=== PATIENT | female | born 1970 | race Hispanic/Latino ===

== ENCOUNTER 2022-03-23 12:00 | Inpatient (IN) | payer OTHER ==
[2022-03-23 12:56] VITALS: BMI 36.6
[2022-03-26 08:13] LABS: SARS-CoV-2 NAA Rapid Test Not Detected (NotDetected)
[2022-03-26] MEDS ORDERED: Midazolam HCl 2 mg/2 ml Vial ONE (08:47)
[2022-03-26] MEDS ORDERED: Fentanyl 250 MCG/5 ML VIAL ONE (08:47)
[2022-03-26] MEDS ORDERED: CEFAZOLIN 2 GM VIAL ONE (09:02)
[2022-03-26] MEDS ORDERED: Sodium Chloride 0.9% 100 ML ONE ×3 (09:02→17:21)
[2022-03-26] MEDS ORDERED: cefOXitin 2 GM VIAL ONE ×2 (09:03→17:20)
[2022-03-26] MEDS ORDERED: Lidocaine 1% PF 5 ML VIAL ONE (09:16)
[2022-03-26] MEDS ORDERED: Glycopyrrolate 0.2 MG/ML 5 ML SYRINGE ONE (09:16)
[2022-03-26] MEDS ORDERED: Ondansetron PF 4 MG/2 ML Vial ONE (09:16)
[2022-03-26] MEDS ORDERED: PROPOFOL 200 MG/20 ML VIAL ONE (09:16)
[2022-03-26] MEDS ORDERED: Dexamethasone 20 MG/5 ML VIAL ONE (09:16)
[2022-03-26] MEDS ORDERED: NEOSTIGMINE 3 MG/3 ML SYR 3 MG/3 ML SYRINGE ONE (09:16)
[2022-03-26] MEDS ORDERED: Rocuronium Bromide 10 MG/ML (10ML VIAL) ONE (09:16)
[2022-03-26] MEDS ORDERED: Bupivacaine/Epinephrine 0.25% 30 ML VIAL ONE (09:44)
[2022-03-26] MEDS ORDERED: hydrALAZINE 20 MG/ML VIAL SLOW IVP PRN (11:55)
[2022-03-26] MEDS ORDERED: Ondansetron PF 4 MG/2 ML Vial IVP PRN ×2 (11:55→12:45)
[2022-03-26] MEDS ORDERED: Promethazine HCl 25 MG/ML VIAL IM PRN ×3 (11:55→12:45)
[2022-03-26] MEDS ORDERED: Ipratropium/Albuterol 3 ML NEB NEB PRN (11:55)
[2022-03-26] MEDS ORDERED: Ketorolac Tromethamine 30 MG/ML VIAL IVP SCH (12:00)
[2022-03-26] MEDS ORDERED: Ketorolac Tromethamine 30 MG/ML VIAL IVP PRN (12:20)
[2022-03-26] MEDS ORDERED: Ondansetron HCl/PF 4 MG/2 ML Vial IVP PRN (12:20)
[2022-03-26] MEDS ORDERED: HYDROmorphone 2 MG/ML VIAL SLOW IVP PRN (12:20)
[2022-03-26] MEDS ORDERED: Ketorolac Tromethamine 30 MG/ML VIAL ONE (12:23)
[2022-03-26] MEDS ORDERED: Fentanyl 100 MCG/2 ML VIAL ONE (12:28)
[2022-03-26] MEDS ORDERED: Morphine Sulfate 100 MG in Dextrose 5% in Water 98 ML IV SCH (12:45)
[2022-03-26] MEDS ORDERED: diphenhydrAMINE 25 MG CAP PO PRN (12:45)
[2022-03-26] MEDS ORDERED: diphenhydrAMINE 50 MG/ML VIAL IM/IV PRN (12:45)
[2022-03-26] MEDS ORDERED: Naloxone HCl 0.4 mg/ml Vial IV PRN (12:45)
[2022-03-26] MEDS ORDERED: HYDROmorphone 0.5 MG/0.5 ML SYRINGE ONE ×2 (12:51→13:13)
[2022-03-26] MEDS: Sodium Chloride 0.9% 1,000 ML IV SCH ×2 (13:15→22:10)
[2022-03-26] MEDS: cefOXitin 2 GM in Sodium Chloride 0.9% 100 ML IVPB SCH (17:28)
[2022-03-26] MEDS: Famotidine 20 MG TAB PO SCH (21:00)
[2022-03-26] MEDS: Famotidine/PF 20 mg/2ml Vial SLOW IVP SCH (21:01)
[2022-03-27] MEDS: cefOXitin 2 GM in Sodium Chloride 0.9% 100 ML IVPB SCH (01:14)
[2022-03-27] MEDS: Sodium Chloride 0.9% 1,000 ML IV SCH ×3 (05:03→23:39)
[2022-03-27 06:16] LABS: Hemoglobin 12.9 g/dL (12.0-16.0); Mean Corpuscular HGB CONC 32.8 g/dL (32.0-36.0); Mean Corpuscular Hemoglobin 29.4 pg (27.0-31.0); Mean Corpuscular Volume 89.5 fl (78.0-98.0); Mean Platelet Volume 6.2 fL (7.4-10.4); Platelet Count 460 10x3/uL (130-400); RBC Distribution Width 13.1 % (11.5-14.5); Red Blood Cell (RBC) Count 4.38 mill/uL (4.20-5.40); White Blood Cell (WBC) Count 23.5 10x3/uL (4.8-10.8)
[2022-03-27 06:28] LABS: Anion Gap 11 mmol/L (10-20); BUN (Urea Nitrogen) 12 mg/dL (9.8-20.1); Calc. Creatinine Clearance 128 mL/min (70-130); Calcium 8.5 mg/dL (7.8-10.44); Carbon Dioxide 23 mmol/L (22-29); Chloride 105 mmol/L (98-107); Estimated GFR 101; Glucose 132 mg/dL (70-105); Potassium 4.3 mmol/L (3.5-5.1); Sodium 135 mmol/L (136-145)
[2022-03-27 06:57] LABS: Lymphocytes 23 % (21-51); MDiff Complete? YES; Monocytes 6 % (0-10); Neutrophil 71 % (42-75); Platelet Morphology Comment Appears Increased; RBC Morphology Normal
[2022-03-27] MEDS: Famotidine/PF 20 mg/2ml Vial SLOW IVP SCH ×2 (09:39→20:32)
[2022-03-27] MEDS: Famotidine 20 MG TAB PO SCH ×2 (09:39→20:32)
[2022-03-28] MEDS: Sodium Chloride 0.9% 1,000 ML IV SCH ×3 (05:09→22:02)
[2022-03-28] MEDS: Famotidine/PF 20 mg/2ml Vial SLOW IVP SCH ×2 (08:05→22:02)
[2022-03-28] MEDS: Famotidine 20 MG TAB PO SCH ×2 (08:06→21:59)
[2022-03-29] MEDS: Sodium Chloride 0.9% 1,000 ML IV SCH ×2 (05:18→15:18)
[2022-03-29] MEDS: Famotidine 20 MG TAB PO SCH (08:34)
[2022-03-29] MEDS: Famotidine/PF 20 mg/2ml Vial SLOW IVP SCH (08:34)
[2022-03-29] MEDS ORDERED: DC PCA Order Set 1 EACH FS ONE (11:07)
[2022-03-29] MEDS ORDERED: HYDROcodone/Acetaminophen 7.5/325 mg Tablet PO PRN (11:10)
[2022-03-29] MEDS: HYDROcodone/Acetaminophen 7.5/325 mg Tablet PO PRN ×2 (13:54→17:38)
[2022-03-29 15:55] VITALS: BP 146/86; TEMP 98.3
== END 2022-03-29 18:49 | disposition home or self-care (01) | DRG 330 ==
LOC: SURG A 03-26 06:56
PROVIDERS: ADMIT Surgery; ATTEND Surgery
PROC: 0DBN0ZZ Excision of Sigmoid Colon, Open Approach (ICD-10-PCS; principal; 2022-03-26)
PROC: 0D1B0Z4 Bypass Ileum to Cutaneous, Open Approach (ICD-10-PCS; 2022-03-26)
DX: K57.20 Diverticulitis of large intestine with perforation and abscess without bleeding (principal); N32.1 Vesicointestinal fistula; Z20.822 Contact with and (suspected) exposure to COVID-19; F17.210 Nicotine dependence, cigarettes, uncomplicated; E66.9 Obesity, unspecified; G89.29 Other chronic pain; Z68.36 Body mass index [BMI] 36.0-36.9, adult; Z79.899 Other long term (current) drug therapy; Z79.84 Long term (current) use of oral hypoglycemic drugs; Z90.89 Acquired absence of other organs; Z82.49 Family history of ischemic heart disease and other diseases of the circulatory system; Z83.3 Family history of diabetes mellitus; Z82.3 Family history of stroke; Z91.09 Other allergy status, other than to drugs and biological substances
CPT/HCPCS: 36415; 36416; 80048; 85025; 87070; 87076; 87077; 87186; 87205; 88307; 97139; A4649; J0694; J1100; J1170; J1650; J1885; J2250; J2270; J2405; J2704; J3010; J3490; J7050; J7070; S0028; U0002

== ENCOUNTER 2022-03-23 12:15 | Outpatient (CLI) | payer OTHER ==
[2022-03-23 13:20] LABS: Hemoglobin 15.5 g/dL (12.0-15.5); Mean Corpuscular HGB CONC 33.8 g/dL (32.0-36.0); Mean Corpuscular Hemoglobin 28.8 pg (27.0-33.0); Mean Corpuscular Volume 85.2 fl (81.6-98.3); Mean Platelet Volume 8.1 fl (7.4-10.4); Platelet Count 549 10x3/uL (150-450); RBC Distribution Width 14.5 % (11.5-14.5); Red Blood Cell (RBC) Count 5.39 10x6/uL (3.90-5.03)
[2022-03-23 13:23] LABS: ALT (SGPT) 6 U/L (8-55); AST (SGOT) 12 U/L (5-34); Albumin 4.3 g/dL (3.5-5.0); Alkaline Phosphatase 127 U/L (40-110); Anion Gap 13 mmol/L (10-20); BUN (Urea Nitrogen) 8 mg/dL (9.8-20.1); Bilirubin, Total 0.4 mg/dL (0.2-1.2); Calc. Creatinine Clearance 0 mL/min (70-130); Calcium 9.7 mg/dL (7.8-10.44); Carbon Dioxide 28 mmol/L (22-29); Chloride 100 mmol/L (98-107); Estimated GFR 95; Globulin 3.4 g/dL (2.4-3.5); Glucose 132 mg/dL (70-105); Potassium 4.1 mmol/L (3.5-5.1); Protein, Total 7.7 g/dL (6.0-8.3); Sodium 137 mmol/L (136-145)
[2022-03-23 15:48] LABS: Band 1 % (5-11); Lymphocytes 24 % (21-51); Monocytes 6 % (0-10); Neutrophil 53 % (42-75); Reactive Lymphocytes 16 % (0-10)
[2022-03-23 15:50] LABS: Platelet Morphology Comment Appears Increased; Small Platelets MODERATE
[2022-03-23 15:51] LABS: MDiff Complete? YES; RBC Morphology Normal
[2022-03-23 16:48] LABS: Hemoglobin A1c 6.8 % (4.0-6.0)
== END 2022-03-23 12:16 | disposition home or self-care (01) ==
LOC: LABBT 12:15
PROVIDERS: ATTEND Surgery
DX: Z01.818 Encounter for other preprocedural examination (principal); N32.1 Vesicointestinal fistula
CPT/HCPCS: 80053; 83036; 85025; 93005; 93010

== ENCOUNTER 2022-05-21 11:00 | Inpatient (IN) | payer OTHER ==
[2022-05-21 15:59] VITALS: BMI 37.2
[2022-05-23 08:39] LABS: SARS-CoV-2 NAA Rapid Test Not Detected (NotDetected)
[2022-05-23] MEDS ORDERED: Neomycin-Polymyxin 1 ML AMP ONE (09:30)
[2022-05-23] MEDS ORDERED: cefOXitin 2 GM VIAL ONE (10:07)
[2022-05-23] MEDS ORDERED: Sodium Chloride 0.9% 100 ML ONE (10:07)
[2022-05-23] MEDS ORDERED: Fentanyl 250 MCG/5 ML VIAL ONE (10:19)
[2022-05-23] MEDS ORDERED: Famotidine/PF 20 mg/2ml Vial ONE (10:19)
[2022-05-23] MEDS ORDERED: Ketorolac Tromethamine 30 MG/ML VIAL ONE (10:30)
[2022-05-23] MEDS ORDERED: PHENYLEPHRINE-NS 100 MCG/ML 10 ML SYRINGE ONE (10:30)
[2022-05-23] MEDS ORDERED: PROPOFOL 200 MG/20 ML VIAL ONE (10:30)
[2022-05-23] MEDS ORDERED: Rocuronium Bromide 10 MG/ML (10ML VIAL) ONE (10:30)
[2022-05-23] MEDS ORDERED: Succinylcholine Chloride 100 MG/5 ML SYRINGE FS ONE (10:30)
[2022-05-23] MEDS ORDERED: Glycopyrrolate 0.2 MG/ML 5 ML SYRINGE ONE (10:30)
[2022-05-23] MEDS ORDERED: NEOSTIGMINE 3 MG/3 ML SYR 3 MG/3 ML SYRINGE ONE (10:30)
[2022-05-23] MEDS ORDERED: Lidocaine 1% PF 5 ML VIAL ONE (10:30)
[2022-05-23] MEDS ORDERED: HYDROmorphone 2 MG/ML VIAL SLOW IVP PRN (11:36)
[2022-05-23] MEDS ORDERED: Meperidine HCl/PF 25 MG/ML VIAL SLOW IVP PRN (11:36)
[2022-05-23] MEDS ORDERED: Promethazine HCl 25 MG/ML VIAL IM PRN ×2 (11:36→12:09)
[2022-05-23] MEDS ORDERED: Ondansetron PF 4 MG/2 ML Vial IVP PRN (12:09)
[2022-05-23] MEDS ORDERED: Ipratropium/Albuterol 3 ML NEB NEB PRN (12:09)
[2022-05-23] MEDS ORDERED: hydrALAZINE 20 MG/ML VIAL SLOW IVP PRN (12:09)
[2022-05-23] MEDS ORDERED: Morphine 4 MG/ML VIAL SLOW IVP PRN (12:18)
[2022-05-23] MEDS ORDERED: FENTANYL 50 MCG/ML 1 ML VIAL ONE ×3 (12:19→13:05)
[2022-05-23] MEDS ORDERED: HYDROmorphone 0.5 MG/0.5 ML SYRINGE ONE ×3 (12:47→13:04)
[2022-05-23] MEDS ORDERED: Promethazine HCl 25 MG/ML VIAL ONE (13:16)
[2022-05-23] MEDS ORDERED: hydrALAZINE 20 MG/ML VIAL ONE (13:32)
[2022-05-23] MEDS: Morphine 4 MG/ML VIAL SLOW IVP PRN (15:38)
[2022-05-23] MEDS: Sodium Chloride 0.9% 1,000 ML IV SCH ×2 (15:39→20:24)
[2022-05-23] MEDS: cefOXitin 2 GM in Sodium Chloride 0.9% 100 ML IVPB SCH (17:47)
[2022-05-23] MEDS: Ketorolac Tromethamine 30 MG/ML VIAL IVP SCH (17:47)
[2022-05-23] MEDS: Famotidine/PF 20 mg/2ml Vial SLOW IVP SCH (20:23)
[2022-05-23] MEDS: Famotidine 20 MG TAB PO SCH (20:23)
[2022-05-23] MEDS: Morphine 2 MG/ML VIAL SLOW IVP PRN (20:24)
[2022-05-24] MEDS: Ketorolac Tromethamine 30 MG/ML VIAL IVP SCH ×5 (00:09→23:49)
[2022-05-24] MEDS: Sodium Chloride 0.9% 1,000 ML IV SCH ×4 (00:11→23:51)
[2022-05-24] MEDS: cefOXitin 2 GM in Sodium Chloride 0.9% 100 ML IVPB SCH (02:05)
[2022-05-24 05:07] LABS: #Basophils 0.1 thou/uL (0.0-0.2); #Lymphocytes 2.6 thou/uL (1.20-3.40); #Monocytes 1.2 thou/uL (0.11-0.59); %Basophils 0.3 % (0.0-1.0); %Eosinophils 0.2 % (0.0-10.0); %Lymphocytes 13.2 % (21.0-51.0); %Monocytes 5.9 % (0.0-10.0); %Neutrophils 80.4 % (42.0-75.0); Hemoglobin 12.9 g/dL (12.0-16.0); Mean Corpuscular HGB CONC 33.2 g/dL (32.0-36.0); Mean Corpuscular Volume 90.6 fl (78.0-98.0); Mean Platelet Volume 6.2 fL (7.4-10.4); Platelet Count 446 10x3/uL (130-400); RBC Distribution Width 13.4 % (11.5-14.5); Red Blood Cell (RBC) Count 4.29 mill/uL (4.20-5.40); White Blood Cell (WBC) Count 19.8 10x3/uL (4.8-10.8)
[2022-05-24 05:29] LABS: Anion Gap 12 mmol/L (10-20); BUN (Urea Nitrogen) 11 mg/dL (9.8-20.1); Calc. Creatinine Clearance 116 mL/min (70-130); Calcium 8.4 mg/dL (7.8-10.44); Carbon Dioxide 22 mmol/L (22-29); Chloride 108 mmol/L (98-107); Estimated GFR 89; Glucose 128 mg/dL (70-105); Potassium 4.1 mmol/L (3.5-5.1); Sodium 138 mmol/L (136-145)
[2022-05-24] MEDS: Famotidine 20 MG TAB PO SCH ×2 (08:17→20:12)
[2022-05-24] MEDS: Famotidine/PF 20 mg/2ml Vial SLOW IVP SCH ×2 (08:17→20:11)
[2022-05-24] MEDS: Morphine 4 MG/ML VIAL SLOW IVP PRN (10:22)
[2022-05-24] MEDS: Morphine 2 MG/ML VIAL SLOW IVP PRN (16:41)
[2022-05-25] MEDS: Ketorolac Tromethamine 30 MG/ML VIAL IVP SCH ×2 (05:41→11:21)
[2022-05-25] MEDS: Famotidine 20 MG TAB PO SCH (08:31)
[2022-05-25] MEDS: Famotidine/PF 20 mg/2ml Vial SLOW IVP SCH (08:32)
[2022-05-25 11:50] VITALS: BP 144/86; TEMP 99.1
== END 2022-05-25 13:20 | disposition home or self-care (01) | DRG 330 ==
LOC: SURG A 05-23 06:54 → SJJU 05-23 13:53
PROVIDERS: ADMIT Surgery; ATTEND Surgery
PROC: 0DBB0ZZ Excision of Ileum, Open Approach (ICD-10-PCS; principal; 2022-05-23)
DX: Z43.2 Encounter for attention to ileostomy (principal); K46.0 Unspecified abdominal hernia with obstruction, without gangrene; E66.01 Morbid (severe) obesity due to excess calories; Z68.37 Body mass index [BMI] 37.0-37.9, adult; Z79.84 Long term (current) use of oral hypoglycemic drugs; Z91.040 Latex allergy status; Z91.013 Allergy to seafood; Z91.018 Allergy to other foods
CPT/HCPCS: 36415; 80048; 85025; 88307; A4649; J0360; J0694; J1170; J1885; J2270; J2272; J2550; J2704; J3010; J3490; J7050; S0028; U0002

== ENCOUNTER 2022-05-21 13:48 | Outpatient (CLI) | payer OTHER ==
[2022-05-21 15:09] LABS: #Basophils 0.1 10x3/uL (0.0-0.2); #Eosinphils 0.4 10x3/uL (0.0-0.5); #Monocytes 0.8 10x3/uL (0.0-1.1); #Neutrophils 13.5 10x3/uL (1.5-8.4); %Basophils 0.4 % (0.0-2.0); %Eosinophils 1.9 % (0.0-6.0); %Lymphocytes 23.9 % (18.0-47.0); %Monocytes 4.3 % (0.0-10.0); %Neutrophils 68.8 % (40.0-75.0); Hemoglobin 14.3 g/dL (12.0-15.5); Mean Corpuscular HGB CONC 32.5 g/dL (32.0-36.0); Mean Corpuscular Hemoglobin 28.6 pg (27.0-33.0); Mean Platelet Volume 8.7 fl (7.4-10.4); Platelet Count 567 10x3/uL (150-450); RBC Distribution Width 14.9 % (11.5-14.5); White Blood Cell (WBC) Count 19.6 10x3/uL (3.5-10.5)
[2022-05-21 15:15] LABS: ALT (SGPT) 13 U/L (8-55); AST (SGOT) 18 U/L (5-34); Albumin 4.1 g/dL (3.5-5.0); Alkaline Phosphatase 119 U/L (40-110); Anion Gap 15 mmol/L (10-20); BUN (Urea Nitrogen) 11 mg/dL (9.8-20.1); Bilirubin, Total 0.3 mg/dL (0.2-1.2); Calc. Creatinine Clearance 0 mL/min (70-130); Calcium 9.8 mg/dL (7.8-10.44); Carbon Dioxide 27 mmol/L (22-29); Chloride 103 mmol/L (98-107); Estimated GFR 86; Globulin 2.9 g/dL (2.4-3.5); Glucose 181 mg/dL (70-105); Potassium 3.9 mmol/L (3.5-5.1); Sodium 141 mmol/L (136-145)
== END 2022-05-21 13:49 | disposition home or self-care (01) ==
LOC: LABBT 13:48
PROVIDERS: ATTEND Surgery
DX: Z01.812 Encounter for preprocedural laboratory examination (principal); N32.1 Vesicointestinal fistula
CPT/HCPCS: 80053; 85025